=== PATIENT | male | born 1965 | race Caucasian/White ===

== ENCOUNTER 2017-09-20 07:44 | Day surgery (SDC) | payer OTHER ==
[2017-09-20] MEDS ORDERED: Lactated Ringer's 500 ML IV ONE (10:25)
[2017-09-20] MEDS ORDERED: Propofol 10 mg/ml Inj (20 ML) ONE (10:26)
[2017-09-20] MEDS ORDERED: Midazolam 2 MG/2 ML VIAL ONE (10:26)
--- NOTE | 2017-09-20 10:26 | CP.SDSHP ---
Same Day Surgery H & P - History Proposed Procedure: colonoscopy Pre-Op Diagnosis: screening for colon cancer - Previous Medical/Surgical History Comments: Denies any past medical or surgical history - Allergies Allergies: Allergies No Known Allergies Allergy (Verified 09/20/17 08:12) - Physical Exam Vital Signs: Vital Signs 09/20/17 08:10 Temperature 98 F Pulse Rate 77 Respiratory 19 Rate Blood Pressure 124/79 O2 Sat by Pulse 100 Oximetry Mental Status: Alert & Oriented x3 Neuro: WNL Heart: WNL Lungs: WNL GI: WNL - Impression Impression: screening for colon cancer Pt. Evaluated Today:Candidate for Anesthesia & Procedure: Yes - Date & Time Date: 09/20/17 Time: 10:26 Short Stay Discharge - Short Stay Discharge Admitting Diagnosis/Reason for Visit: ENCOUNTER FOR SCREENING FOR MALIGNANT NEOPLASM OF Disposition: HOME/ ROUTINE
[2017-09-20 13:38] VITALS: TEMP 98.4
[2017-09-20 13:45] VITALS: BP 124/81; PULSE 79; RESP 19; O2SAT 99
== END 2017-09-20 12:00 | disposition home or self-care (01) ==
LOC: C.ENDO 07:44
PROVIDERS: ATTEND Internal Medicine Gastroenterology
DX: K64.8 Other hemorrhoids (principal)
CPT/HCPCS: 45378; J2250; J2704; J7120